=== PATIENT | female | born 1990 | race Caucasian/White ===

== ENCOUNTER 2017-08-27 18:44 | Outpatient (CLI) | payer OTHER ==
[~2017-08-27] VITALS: Ht 162.6 cm; Wt 68.2 kg
[~2017-08-27 18:44] MED LIST: IRON325 MG PO; PRENATAL1 TA7 PO
[2017-08-27 19:30] VITALS: BP 113/64; PULSE 81; TEMP 98.4
[2017-08-27 20:00] LABS: COLLECTION METHOD CLEAN CATCH
[2017-08-27 20:06] LABS: PH 6 (5-8); SQUAMOUS EPITHELIAL 0-2 /hpf; URINE APPEARANCE Clear; URINE BACTERIA None Seen /hpf; URINE BILIRUBIN Negative (NEGATIVE); URINE BLOOD Negative (NEGATIVE); URINE COLOR Yellow; URINE GLUCOSE 3+ (NEGATIVE); URINE KETONE Trace (NEGATIVE); URINE LEUKOCYTE ESTERASE Negative (NEGATIVE); URINE NITRATE Negative (NEGATIVE); URINE PROTEIN(semi-quant) Negative (NEGATIVE); URINE RBC 0-2 /hpf; URINE UROBILINOGEN Negative (NEGATIVE)
== END 2017-08-27 20:43 | disposition home or self-care (01) ==
LOC: LDRO 18:44
PROVIDERS: Obstetrics & Gynecology
DX: O99.89 Other specified diseases and conditions complicating pregnancy, childbirth and the puerperium (principal); M54.9 Dorsalgia, unspecified; Z3A.31 31 weeks gestation of pregnancy

== ENCOUNTER 2017-10-13 13:57 | Inpatient (IN) | payer OTHER ==
[2017-10-13] VITALS (30 sets, daily range): BP systolic 90–115; BP diastolic 50–71; PULSE 67–89; TEMP 97.8–98.4
[~2017-10-13] VITALS: Ht 162.6 cm; Wt 74.1 kg
[2017-10-13 15:24] LABS: BASO % 0.2 % (0.0-2.0); EOS # 0.1 (0.0-0.7); EOS % 1.7 % (0-4.0); GRAN # 5.7 (1.4-6.5); GRAN % 68.2 % (42.2-75.2); LYMPH # 1.8 (1.2-3.4); MEAN CELL VOLUME 89 fl (80.0-100.0); MEAN CORPUSCULAR HGB CONC 33 g/dl (33.0-37.0); MEAN PLATELET VOLUME 10.2 fl (7.4-10.4); MONO # 0.6 (0.1-0.6); MONO % 7.1 % (1.7-9.3); PLATELET COUNT 206 K/mm3 (130-400); RED BLOOD COUNT 3.62 M/mm3 (4.10-5.30); REDCELL DISTRIBUTION WIDTH-CV 12.8 % (11.5-14.5)
[2017-10-13] MEDS ORDERED: MONISTAT 7 VAG45 GM VG (15:30)
[2017-10-13 15:31] LABS: HEMATOCRIT 32.3 % (37.0-47.0); HEMOGLOBIN 10.7 g/dl (12.5-16.0); MEAN CORPUSCULAR HEMOGLOBIN 30 pg (27.0-31.0)
[2017-10-14] VITALS (15 sets, daily range): BP systolic 93–123; BP diastolic 53–72; PULSE 65–87; TEMP 97.7–97.8
[2017-10-15 07:50] VITALS: BP 105/60; PULSE 70; TEMP 97.2
[2017-10-15] MEDS ORDERED: IBU600 MG PO (09:11)
[2017-10-15 17:30] VITALS: BP 116/77; PULSE 80; TEMP 97.6
[2017-10-15 20:00] VITALS: BP 109/60; PULSE 80; TEMP 97.5
[2017-10-16 07:09] VITALS: BP 115/66; PULSE 82; TEMP 97.5
== END 2017-10-16 11:15 | disposition home or self-care (01) | DRG 775 ==
LOC: OB 13:57 → LDR 14:50 → OB 10-14 05:14
PROVIDERS: Obstetrics & Gynecology
PROC: 10E0XZZ Delivery of Products of Conception, External Approach (ICD-10-PCS; principal; 2017-10-13)
PROC: 0UQJXZZ Repair Clitoris, External Approach (ICD-10-PCS; 2017-10-13)
PROC: 0UQMXZZ Repair Vulva, External Approach (ICD-10-PCS; 2017-10-13)
DX: O69.81X0 Labor and delivery complicated by cord around neck, without compression, not applicable or unspecified (principal); O70.0 First degree perineal laceration during delivery; Z3A.38 38 weeks gestation of pregnancy; Z37.0 Single live birth
CPT/HCPCS: J1200; J2590; J2795; J7120